=== PATIENT | male | born 2000 | race Caucasian/White ===

== ENCOUNTER 2024-11-16 07:46 | Emergency (ER) | payer OTHER ==
[~2024-11-16] VITALS: Ht 172.7 cm; Wt 93.6 kg
[2024-11-16 07:49] VITALS: TEMP 97.7; O2SAT 97
[2024-11-16 07:51] VITALS: BP 156/98
[2024-11-16] MEDS ORDERED: NAPR-837 PO (09:43)
== END 2024-11-16 10:04 | disposition home or self-care (01) ==
LOC: M ED 09:55
DX: M75.31 Calcific tendinitis of right shoulder (principal)